=== PATIENT | female | born 2000 | race Caucasian/White ===

== ENCOUNTER 2022-06-03 13:00 | Outpatient (RCR) | payer OTHER ==
[2022-05-25 10:27] VITALS: BP 139/87; PULSE 89; TEMP 98.3
[2022-05-27 10:40] VITALS: BP 128/79; PULSE 93; TEMP 98.8
[2022-05-29 13:19] VITALS: BP 119/79; PULSE 83; TEMP 98.5
[2022-06-01 14:33] VITALS: BP 105/71; PULSE 80; TEMP 97.9
[~2022-06-03] VITALS: Ht 152.4 cm; Wt 82.7 kg
[~2022-06-03 13:00] MED LIST: CAMILA0.35 MG PO; CYMBALTA 60MG60 MG PO; IRON TABLETS325 MG PO; VITAMIN B12 681 TAB PO; VITAMIN D31000 I1 PO; ZYRTEC 10MG10 MG PO
--- NOTE | 2022-06-03 13:58 | NUR ---
Upon pt's arrival to today's apt she reported facial swelling 4 hours after last infusion.Per pt she notified office and was told to use a cool compress.This nurse called Dr Gomes's office to clarify if last dose wanted.Per Dr Pérez Alvarez's nurse do not infuse last dose today.
== END 2022-06-03 13:59 ==
LOC: EUO 13:00
DX: E61.1 Iron deficiency (principal)
CPT/HCPCS: J1756